=== PATIENT | male | born 1980 | race Caucasian/White ===

== ENCOUNTER 2024-05-23 15:51 | Emergency (ER) | payer OTHER ==
[2024-05-23] MEDS ORDERED: Ketorolac 30 MG/ML SDV IM ONE (16:46)
[2024-05-23 17:03] LABS: BASOPHILS ABSOLUTE AUTO 0.05 K/uL (0.00-0.10); BASOPHILS PERCENT AUTO 0.6 % (0.1-1.3); EOSINOPHILS ABSOLUTE AUTO 0.13 K/uL (0.00-0.40); EOSINOPHILS PERCENT AUTO 1.7 % (0.0-5.4); HEMOGLOBIN 12.4 g/dL (12.9-16.9); IMMATURE GRAN ABSOLUTE AUTO 0.03 K/uL (0.00-0.23); IMMATURE GRAN PERCENT AUTO 0.4 % (0.0-0.7); LYMPHOCYTES ABSOLUTE AUTO 2.11 K/uL (0.8-3.3); LYMPHOCYTES PERCENT AUTO 27.4 % (11.4-47.7); MEAN CORPUSCULAR HEMOGLOBIN 28.7 pg (31.6-35.5); MEAN CORPUSCULAR HGB CONC 33.5 g/dL (31.6-35.5); MEAN CORPUSCULAR VOLUME 85.6 fL (81.4-99.0); MONOCYTES ABSOLUTE AUTO 0.58 K/uL (0.20-0.90); MONOCYTES PERCENT AUTO 7.5 % (3.3-12.6); NEUTROPHILS PERCENT AUTO 62.4 % (40.0-78.1); PLATELET COUNT,PLT 291 K/uL (130-375); RED BLOOD CELL COUNT 4.32 M/uL (4.14-5.76); WHITE BLOOD CELL COUNT,WBC 7.7 K/uL (3.2-11.0)
[2024-05-23 17:06] LABS: APPEARANCE,URINE SLIGHTLY CLOUDY (CLEAR); BILIRUBIN,URINE NEGATIVE (NEGATIVE); COLOR,URINE YELLOW (YELLOW); GLUCOSE,URINE NEGATIVE (NEGATIVE); KETONES,URINE NEGATIVE (NEGATIVE); LEUKOCYTE ESTERASE,URINE NEGATIVE (NEGATIVE); NITRITE,URINE NEGATIVE (NEGATIVE); OCCULT BLOOD,URINE MODERATE (NEGATIVE); PH,URINE 5.5 (5.0-8.0); PROTEIN,URINE NEGATIVE (NEGATIVE); UROBILINOGEN,URINE 0.2 EU/dL (0.2-1.0)
[2024-05-23] MEDS: Ketorolac 15 MG/ML SDV IVPUSH ONE (17:14)
[2024-05-23] MEDS: Ondansetron 4 MG/2 ML SDV IVPUSH ONE (17:14)
[2024-05-23 17:24] LABS: ALANINE AMINOTRANSFERASE,ALT 41 U/L (12-78); ALBUMIN 4.2 g/dL (3.4-5.0); ALKALINE PHOSPHATASE 97 U/L (46-116); ASPARTATE AMNIOTRANSFERASE,AST 44 U/L (15-37); BILIRUBIN TOTAL 0.5 mg/dL (0.2-1.0); BLOOD UREA NITROGEN,BUN 10 mg/dL (7-18); CALCIUM 9.4 mg/dL (8.5-10.1); CARBON DIOXIDE,CO2 28 mmol/L (21-32); CHLORIDE,CL 99 mmol/L (100-108); EST CRCL DRUG DOSING (CG) 99.36 mL/min; ESTIMATED GFR 96 mL/min (>60); GLUCOSE RANDOM 110 mg/dL (74-106); POTASSIUM,K 4.5 mmol/L (3.6-5.2); PROTEIN TOTAL,TP 8.3 g/dL (6.4-8.2); SODIUM,NA 137 mmol/L (140-148)
[2024-05-23 17:27] LABS: AMORPHOUS SEDIMENT,URINE NOT SEEN; BACTERIA,URINE NOT SEEN; EPITHELIAL CELLS,URINE RARE; MUCUS,URINE MODERATE; WBC,URINE 0-5 (0-5)
[2024-05-23 17:27] LABS: ANION GAP 14.5 mmol/L (5.0-14.0)
[2024-05-23] MEDS: HYDROmorphone 0.5 MG/0.5 ML Syringe IVPUSH ONE (17:39)
== END 2024-05-23 18:55 | disposition home or self-care (01) ==
LOC: JP.ED 15:51
DX: R10.9 Unspecified abdominal pain (principal); R11.2 Nausea with vomiting, unspecified; Z88.0 Allergy status to penicillin; Z79.899 Other long term (current) drug therapy; Z76.5 Malingerer [conscious simulation]
CPT/HCPCS: 36415; 74176; 80053; 81001; 83605; 85025; 96374; 96375; 99284; J1885; J2405

== ENCOUNTER 2025-01-16 08:33 | Day surgery (SDC) | payer OTHER ==
[2025-01-16] MEDS ORDERED: Lactated Ringers 1,000 ML IV SCH (09:30)
[2025-01-16] MEDS ORDERED: fentaNYL 100 MCG/2 ML SDV ONE (09:52)
[2025-01-16] MEDS ORDERED: Midazolam 1 MG/ML 2 ML SDV ONE (09:52)
[2025-01-16] MEDS ORDERED: Propofol 200 MG/20 ML SDV ONE ×2 (09:52→10:57)
== END 2025-01-16 11:59 | disposition home or self-care (01) ==
LOC: JP.SDS 08:33
PROVIDERS: ATTEND Surgery
DX: R13.10 Dysphagia, unspecified (principal)
CPT/HCPCS: 00731-QZ; C1726; J2250; J2704; J3010